=== PATIENT | female | born 1945 | race Caucasian/White ===

== ENCOUNTER 2017-11-13 19:52 | Inpatient (IN) | payer MEDICARE ==
[~2017-11-13] VITALS: Ht 160 cm; Wt 65.8 kg
[~2017-11-13 19:52] MED LIST: ACET325T53 PO; ALPR0.5T8 PO; BENZ1LOZ58 MM; BLOO-360 IN; CALC500T13 PO; DICL50TA7 PO; DOCU100C36 PO; GLIM4TAB PO; HYDR-552 PO; LACT1CAP61 PO; METF10004 PO; PANT40TA2 PO
[2017-11-13 20:00] VITALS: BP 154/84
--- NOTE | 2017-11-13 20:00 | NUR ---
Patient arrived unit via gurney by ambulance from [facility] at 1900. AAO x3. Nepali speaking. No sign of acute distress or SOB was noted. VS was checked, BP: 154/84, HR:108, RR:20, T: 97.6, O2 SAT: 95% Room air. Dr. Motley was called for Medication reconciliations. Patient was assessed, Skin: redness on left heel, redness on right and left groin area, mild redness on perianal area, bruise at upper part of the right thigh, skin abrasion on right lower abdomen (with Mepilex on it). Pictures were taken and placed on the chart. Safety measures maintained, Bed alarm and brake on, side rails up x2, call light and personal belongings within reach, continue to monitor.
[2017-11-13] MEDS ORDERED: ATOR10TA PO (20:07)
[2017-11-13] MEDS ORDERED: METO25TA6 PO (20:07)
[2017-11-13] MEDS ORDERED: GLIM4TAB3 PO (20:07)
[2017-11-13] MEDS ORDERED: ASPI81TA31 PO (20:07)
[2017-11-13] MEDS ORDERED: LOSA100T15 PO (20:07)
[2017-11-13] MEDS ORDERED: LORA0.5T PO (20:07)
[2017-11-13] MEDS ORDERED: ACID1TAB12 PO (20:07)
[2017-11-13] MEDS ORDERED: LEVO500T90 PO (20:07)
[2017-11-13] MEDS ORDERED: METF10004 PO (20:07)
[2017-11-13] MEDS: BLOOD SUGAR DIAGNOSTIC 1 EACH STRIP VI SCH (21:00)
[2017-11-13] MEDS ORDERED: DOCUSATE SODIUM 100 MG CAPSULE PO PRN (21:00)
[2017-11-13] MEDS ORDERED: ACETAMINOPHEN 325 MG TABLET PO PRN (21:00)
[2017-11-13] MEDS ORDERED: CALCIUM CARBONATE 500 MG TAB.CHEW PO PRN (21:00)
[2017-11-13] MEDS ORDERED: HYDROCODONE/APAP 5-325MG TABLET PO PRN ×2 (21:00→23:45)
[2017-11-13] MEDS ORDERED: DEXTROSE 50% 50 ML DISP.SYRIN IV PRN (21:00)
[2017-11-13] MEDS: LORAZEPAM 0.5 MG TABLET PO SCH (22:22)
[2017-11-13] MEDS: ATORVASTATIN 10 MG TABLET PO SCH (22:22)
[2017-11-13] MEDS ORDERED: INSULIN REGULAR, HUMAN 300 UNIT/3 ML VIAL ONE (23:03)
[2017-11-13] MEDS: INSULIN REGULAR, HUMAN 300 UNITS/3 ML VIAL SQ PRN (23:13)
[2017-11-13] MEDS ORDERED: MAGNESIUM HYDROXIDE 30 ML LIQUID UDC PO PRN (23:45)
[2017-11-13] MEDS ORDERED: ZOLPIDEM 5 MG TABLET PO PRN (23:45)
[2017-11-13] MEDS ORDERED: Z GUARD REMEDY PASTE 57 GM TUBE TOP PRN (23:45)
[2017-11-13] MEDS ORDERED: ONDANSETRON 4 MG/2 ML VIAL IV PRN (23:45)
[2017-11-14] MEDS ORDERED: PANTOPRAZOLE SODIUM 40 MG TABLET.DR PO SCH ×2 (07:00→07:30)
[2017-11-14 07:10] LABS: BASOPHILS % (AUTO) 0.3 % (0.0-2.0); EOSINOPHILS # (AUTO) 0.1 K/uL (0.0-0.7); EOSINOPHILS % (AUTO) 1.2 % (0.0-7.0); HEMATOCRIT 32.3 % (31.2-41.9); HEMOGLOBIN 10.9 g/dL (10.9-14.3); LYMPHOCYTES # (AUTO) 2.2 K/uL (20.0-40.0); LYMPHOCYTES % (AUTO) 23.1 % (20.5-51.5); MEAN CORPUSCULAR HEMOGLOBIN 29.7 uug (24.7-32.8); MEAN CORPUSCULAR HGB CONC 34 g/dL (32.3-35.6); MEAN CORPUSCULAR VOLUME 88.3 fL (75.5-95.3); MONOCYTES # (AUTO) 0.7 K/uL (2.0-10.0); MONOCYTES % (AUTO) 7.7 % (0.0-11.0); NEUTROPHILS # (AUTO) 6.3 K/uL (1.8-8.9); NEUTROPHILS % (AUTO) 67.7 % (38.5-71.5); PLATELET COUNT (AUTO) 351 K/uL (179-408); RED BLOOD CELL COUNT(AUTO) 3.65 MIL/uL (3.63-4.92); WHITE BLOOD COUNT (AUTO) 9.4 K/uL (3.8-11.8)
[2017-11-14] MEDS: BLOOD SUGAR DIAGNOSTIC 1 EACH STRIP VI SCH ×4 (07:12→20:48)
[2017-11-14 07:39] LABS: CARBON DIOXIDE 27 mmol/L (21-32); CHLORIDE 101 mmol/L (98-107); CHOLESTEROL 103 mg/dL (<200); CREATININE 1.1 mg/dL (0.6-1.3); GLUCOSE 192 mg/dL (74-106); HDL CHOLESTEROL 33 mg/dL (40-60); MAGNESIUM 1.9 mg/dL (1.8-2.4); PHOSPHOROUS 3.6 mg/dL (2.5-4.9); POTASSIUM 3.4 mmol/L (3.5-5.1); TRIGLYCERIDES 124 MG/DL (30-150); UREA NITROGEN, BLOOD 24 mg/dL (7-18)
--- NOTE | 2017-11-14 07:49 | NUR ---
patient was stable throughout the shift and has a good sleep. safety measure maintained, medication given as ordered. needs attended and anticipated promptly. endorsed to the day shift nurse.
[2017-11-14] MEDS ORDERED: ZOLPIDEM 5 MG TABLET PO PRN (08:00)
[2017-11-14] MEDS: PANTOPRAZOLE SODIUM 40 MG TABLET.DR PO SCH (08:34)
[2017-11-14] MEDS: METFORMIN HCL 500 MG TABLET PO SCH ×2 (08:34→17:13)
[2017-11-14] MEDS: ASPIRIN 81 MG TAB.CHEW PO SCH (08:34)
[2017-11-14] MEDS: GLIMEPIRIDE 4 MG TABLET PO SCH ×2 (08:34→17:13)
[2017-11-14] MEDS: METOPROLOL TARTRATE 25 MG TABLET PO SCH ×2 (08:34→20:35)
[2017-11-14] MEDS: ACIDOPHILUS/BULGARICUS CHEW TAB PO SCH (08:34)
[2017-11-14] MEDS: INSULIN REGULAR, HUMAN 300 UNIT/3 ML VIAL SQ PRN ×2 (08:36→12:10)
[2017-11-14 08:54] VITALS: BP 139/76
[2017-11-14] MEDS ORDERED: LEVOFLOXACIN 500 MG TABLET PO SCH (09:00)
[2017-11-14] MEDS ORDERED: Medication Not On Formulary EA (Metformin Hcl 1,000 MG) PO SCH (09:00)
[2017-11-14] MEDS ORDERED: Medication Not On Formulary EA (Lactobacillus Acidophilus (Acidophilus) 1 EACH) PO SCH (09:00)
[2017-11-14] MEDS ORDERED: Medication Not On Formulary EA (Acidophilus/Bulgaricus (Floranex Tablet) 1 EACH) PO SCH (09:00)
[2017-11-14] MEDS ORDERED: POTASSIUM CHLORIDE 20 MEQ TAB.PRT.SR PO ONE (14:00)
[2017-11-14 17:30] VITALS: BP 136/72
--- NOTE | 2017-11-14 18:35 | NUR ---
Nurse Notes: patient remained stable throughout the shift with no acute changes noted. Kept patient clean, dry and comfortable. assessed for pain, no display of pain or discomforts noted. no SOB or distress. Performed blood sugar checks as scheduled. administered insulin as ordered per sliding scale coverage. Monitored vital signs. safety precautions observed. Hourly rounding done, call light and telephone within reach at all times, bilateral half side rails up and bed brake son for safety. Will endorse accordingly to incoming shift for continuity of acre.
[2017-11-14 20:00] VITALS: BP 173/81
--- NOTE | 2017-11-14 20:05 | NUR ---
Patient received in bed, AAO x2, able to make needs known, [place] speaking. No sign of distress or SOB was noted. On room air with O2 sat 96%. Her family were in the room. Safety measures maintained. Bed alarm and brake on, side rails up x2. Call light and personal belongings within reach. continue to monitor.
[2017-11-14] MEDS: LORAZEPAM 0.5 MG TABLET PO SCH (20:34)
[2017-11-14] MEDS: DOCUSATE SODIUM 100 MG CAPSULE PO SCH (20:34)
[2017-11-14] MEDS: ATORVASTATIN 10 MG TABLET PO SCH (20:34)
[2017-11-14] MEDS: INSULIN REGULAR, HUMAN 300 UNITS/3 ML VIAL SQ PRN (20:48)
[2017-11-15] MEDS: PANTOPRAZOLE SODIUM 40 MG TABLET.DR PO SCH (06:13)
[2017-11-15] MEDS: BLOOD SUGAR DIAGNOSTIC 1 EACH STRIP VI SCH ×4 (06:34→21:31)
[2017-11-15 06:51] VITALS: BP 116/63
--- NOTE | 2017-11-15 06:58 | NUR ---
End of the shift note Patient remained stable throughout the shift. No acute changes noted. Kept patient clean, dry and comfortable. Assessed for pain, no display of pain or discomforts noted. No sign of acute distress or SOB was noted. Performed blood sugar checks as scheduled. BS was 200 at 2100.Administered insulin 3 units as ordered per sliding scale coverage. Monitored vital signs. Safety precautions observed. Hourly rounding done, call light and telephone within reach at all times, bilateral half side rails up and bed brake son for safety. Will endorse accordingly to incoming shift for continuity of acre.
[2017-11-15] MEDS: ASPIRIN 81 MG TAB.CHEW PO SCH (08:51)
[2017-11-15] MEDS: METFORMIN HCL 500 MG TABLET PO SCH ×2 (08:51→16:52)
[2017-11-15] MEDS: ACIDOPHILUS/BULGARICUS CHEW TAB PO SCH (08:51)
[2017-11-15] MEDS: GLIMEPIRIDE 4 MG TABLET PO SCH ×2 (08:51→16:52)
[2017-11-15] MEDS: LEVOFLOXACIN 250 MG TABLET PO SCH (08:51)
[2017-11-15] MEDS: METOPROLOL TARTRATE 25 MG TABLET PO SCH ×2 (08:54→21:16)
--- NOTE | 2017-11-15 15:41 | NUR ---
INTERDISCIPLINARY TEAM CONFERENCE
--- NOTE | 2017-11-15 16:37 | NUR ---
REFUSED SLIDING SCALE COVERAGE FOR LUNCH AND DINNER
--- NOTE | 2017-11-15 19:10 | NUR ---
Pt awake in bed , semi fowlers position . Pt in no distress and has no c/o pain . pt requesting sleep medication . Stated to pt that it was early and pt agreed to wait until 2100 . Bed in low position , wheels locked , side rails up x 2 , bed alarm is on , and call light is near pt on bed .
[2017-11-15 20:00] VITALS: BP 143/89
[2017-11-15] MEDS: LORAZEPAM 0.5 MG TABLET PO SCH (21:14)
[2017-11-15] MEDS: DOCUSATE SODIUM 100 MG CAPSULE PO SCH (21:15)
[2017-11-15] MEDS: ATORVASTATIN 10 MG TABLET PO SCH (21:15)
[2017-11-15] MEDS: INSULIN REGULAR, HUMAN 300 UNITS/3 ML VIAL SQ PRN (21:37)
[2017-11-16] MEDS: PANTOPRAZOLE SODIUM 40 MG TABLET.DR PO SCH (06:35)
[2017-11-16] MEDS: BLOOD SUGAR DIAGNOSTIC 1 EACH STRIP VI SCH ×4 (06:41→20:53)
[2017-11-16 06:53] VITALS: BP 149/66
--- NOTE | 2017-11-16 07:08 | NUR ---
End of Shift . Pt slept throughout the shift . No signs of distress and has no c/o pain . VSS in am .
[2017-11-16] MEDS: GLIMEPIRIDE 4 MG TABLET PO SCH ×2 (08:33→16:33)
[2017-11-16] MEDS: LEVOFLOXACIN 250 MG TABLET PO SCH (08:34)
[2017-11-16] MEDS: METFORMIN HCL 500 MG TABLET PO SCH ×2 (08:34→16:33)
[2017-11-16] MEDS: ACIDOPHILUS/BULGARICUS CHEW TAB PO SCH (08:36)
[2017-11-16] MEDS: METOPROLOL TARTRATE 25 MG TABLET PO SCH (08:36)
[2017-11-16] MEDS: ASPIRIN 81 MG TAB.CHEW PO SCH (08:36)
--- NOTE | 2017-11-16 10:50 | NUR ---
bilat heel pics taken heels CDI no redness or breakdown noted
[2017-11-16] MEDS: LOSARTAN POTASSIUM 50 MG TABLET PO SCH (13:25)
--- NOTE | 2017-11-16 15:06 | NUR ---
INTERDISCIPLINARY TEAM CONFERENCE
[2017-11-16] MEDS: METOPROLOL TARTRATE 50 MG TABLET PO SCH (20:49)
[2017-11-16] MEDS: LORAZEPAM 0.5 MG TABLET PO SCH (20:50)
[2017-11-16] MEDS: ATORVASTATIN 10 MG TABLET PO SCH (20:50)
[2017-11-16] MEDS: DOCUSATE SODIUM 100 MG CAPSULE PO SCH (20:50)
[2017-11-16 21:53] VITALS: BP 159/73
--- NOTE | 2017-11-17 00:14 | NUR ---
Received pt at the beginning of shift in bed and feeling anxious. Italian speaking. Family came and at bedside, pt felt better after seeing family. No acute distress noted. No c/o pain or discomfort. Safety measures maintained. Will continue to monitor.
[2017-11-17 05:56] VITALS: BP 139/64
[2017-11-17] MEDS: PANTOPRAZOLE SODIUM 40 MG TABLET.DR PO SCH (06:06)
[2017-11-17] MEDS: METFORMIN HCL 500 MG TABLET PO SCH ×2 (08:00→16:51)
--- NOTE | 2017-11-17 08:14 | NUR ---
patient had a low blood sugar at 0730. BS: 43. Maverick juice plus sugar give and checked again it was 39. decision support analyst doctor was called with no response. endorsed to the on coming nurse. They administered 50% Dextrose as protocol. continue to monitor.
[2017-11-17] MEDS: BLOOD SUGAR DIAGNOSTIC 1 EACH STRIP VI SCH ×4 (08:20→20:32)
[2017-11-17] MEDS: ASPIRIN 81 MG TAB.CHEW PO SCH (08:52)
[2017-11-17] MEDS: GLIMEPIRIDE 4 MG TABLET PO SCH ×2 (08:52→16:51)
[2017-11-17] MEDS: ACIDOPHILUS/BULGARICUS CHEW TAB PO SCH (08:52)
[2017-11-17] MEDS: LOSARTAN POTASSIUM 50 MG TABLET PO SCH (08:56)
[2017-11-17] MEDS: METOPROLOL TARTRATE 50 MG TABLET PO SCH ×2 (08:57→20:34)
--- NOTE | 2017-11-17 10:03 | NUR ---
Received patient lethargic but awake and oriented. BS of 43 endorse by night nurse. Dextrose 50%given via IV push at left forearm. no infiltration noted. will continue monitor
--- NOTE | 2017-11-17 10:37 | NUR ---
WOUND CARE CONSULT PATIENT SEE AND SKIN INTEGRITY ASSESSMENT DONE.. PATIENT PRESENTS WITH LEFT INNER BUTTOCK DTI THAT IS NOTED TO BE INTACT AT THIS TIME MEASURES 2CM X 1CM X UTD. THERE IS ALSO A SMALLER DTI AT THE BASE OF THE GLUTEAL CLEFT THAT MEASURES 0.5CM X 0.5CM X UTS. BOTH ARE INTACT, PURPLE IN COLOR, NO DRNG AND NO S/S OF INFECTION AND NOTED TO BE POA. RECOMMEND CLEANSE WITH NS PAT DRY AND APPLY MEPILEX DAILY AND PRN SOILING. PATIENT PRESENTS WITH LEFT THIGH DISCOLORATION AND DRY PATCH OF SKIN, NO S/S OF INFECTION NOTED AND POA. BILATERAL HEEL ARE NOTED TO BE INTACT WITH NO REDNESS NOTED. GROIN FOLD REDNESS/EXCORIATIONS ARE NOTED TO BE IMPROVED WITH USE OF Z GUARD. CONTINUE USE OF Z GUARD CURRENTLY ORDERED. RIGHT LOWER ABDOMEN IS NOTED TO HAVE RED AREA OF DRY SKIN POA. KEEP CLEAN AND DRY AND OPEN TO AIR. PATIENT WITH DEMARCUS AT 15, CONTINUE ALL PRESSURE ULCER PREVENTION MEASURES PER CURRENT PLAN OF CARE. TREATMENT PLANS DISCUSSED WITH NURSING STAFF AT THE BEDSIDE. WILL SEE PRN.
[2017-11-17 11:36] VITALS: BP 154/77
[2017-11-17] MEDS: INSULIN REGULAR, HUMAN 300 UNIT/3 ML VIAL SQ PRN ×2 (12:04→20:45)
--- NOTE | 2017-11-17 13:16 | NUR ---
INTERDISCIPLINARY TEAM CONFERENCE
[2017-11-17 16:06] VITALS: BP 134/57
--- NOTE | 2017-11-17 18:17 | NUR ---
Patient not in distress. 95% pulse OXY in room air. Continue on pain management with good effect. will continue monitor Addendum: 11/17/17 at 1820 by DAYNA PERDOMO RN RN [facility] BS-[id number]. no signs of hypo/hyperglycemia.
--- NOTE | 2017-11-17 19:30 | NUR ---
PT AWAKE AND LAYING IN LOW FOWLERS POSITION IN BED . PT IN NO DISTRESS AND HAS NO C/O PAIN . BED IS IN LOW POSITION , WHEELS LOCKED , SIDE RAILS UP X 2 , BED ALARM ON , AND CALL LIGHT IS NEAR PT ON BED . VSS AND PT IS A & O X 2 .
[2017-11-17 20:21] VITALS: BP 156/82
[2017-11-17] MEDS: LORAZEPAM 0.5 MG TABLET PO SCH (20:31)
[2017-11-17] MEDS: ATORVASTATIN 10 MG TABLET PO SCH (20:31)
[2017-11-17] MEDS: DOCUSATE SODIUM 100 MG CAPSULE PO SCH (20:31)
[2017-11-18] MEDS: ACETAMINOPHEN 325 MG TABLET PO PRN (00:20)
[2017-11-18] MEDS: ALPRAZOLAM 0.5 MG TABLET PO PRN ×2 (02:26→14:42)
--- NOTE | 2017-11-18 02:35 | NUR ---
Pt was very anxious and agitated , not redirectable , trying to get out of bed . Pt offered Xanax 0.5 mg and given to pt . Will continue to monitor pt for anxiety and agitation . Safety maintained , call light in reach .
[2017-11-18 05:00] VITALS: BP 151/68
[2017-11-18] MEDS: PANTOPRAZOLE SODIUM 40 MG TABLET.DR PO SCH (06:30)
[2017-11-18] MEDS: BLOOD SUGAR DIAGNOSTIC 1 EACH STRIP VI SCH ×4 (06:38→20:35)
--- NOTE | 2017-11-18 06:57 | NUR ---
End of Shift. Pt slept at 0330 and and is resting comfortably in bed low fowlers position. Pt in no sign of distress and no c/o pain . VSS , pt has a blood sugar of 142 at 0630 .
[2017-11-18 08:20] VITALS: BP 132/63
[2017-11-18] MEDS: GLIMEPIRIDE 4 MG TABLET PO SCH ×2 (08:29→17:08)
[2017-11-18] MEDS: ACIDOPHILUS/BULGARICUS CHEW TAB PO SCH (08:29)
[2017-11-18] MEDS: INSULIN REGULAR, HUMAN 300 UNIT/3 ML VIAL SQ PRN ×3 (08:29→16:27)
[2017-11-18] MEDS: LOSARTAN POTASSIUM 50 MG TABLET PO SCH (08:30)
[2017-11-18] MEDS: METOPROLOL TARTRATE 50 MG TABLET PO SCH ×2 (08:30→20:38)
[2017-11-18] MEDS: ASPIRIN 81 MG TAB.CHEW PO SCH (08:30)
[2017-11-18] MEDS: METFORMIN HCL 500 MG TABLET PO SCH ×2 (08:30→17:08)
[2017-11-18] MEDS: MULTIVITAMINS,THERAPEUTIC TABLET PO SCH (08:31)
[2017-11-18 15:50] VITALS: BP 123/67
--- NOTE | 2017-11-18 20:00 | NUR ---
Pt is awake and laying in low fowlers position in bed . Pt has no signs of distress and has no c/o pain . Pt asking for sleep medication . At 2030 , pt given medications . Bed is in low position , wheels locked , side rails up x 2 , bed alarm on , and call light is near pt on bed . Pt is A & O x 2 , calm and cooperative .
[2017-11-18] MEDS: LORAZEPAM 0.5 MG TABLET PO SCH (20:36)
[2017-11-18] MEDS: DOCUSATE SODIUM 100 MG CAPSULE PO SCH (20:37)
[2017-11-18] MEDS: ATORVASTATIN 10 MG TABLET PO SCH (20:37)
[2017-11-18 20:49] VITALS: BP 153/82
[2017-11-19 05:55] VITALS: BP 134/74
[2017-11-19] MEDS: PANTOPRAZOLE SODIUM 40 MG TABLET.DR PO SCH (06:15)
[2017-11-19] MEDS: BLOOD SUGAR DIAGNOSTIC 1 EACH STRIP VI SCH ×4 (06:31→20:26)
[2017-11-19 07:58] LABS: BASOPHILS # (AUTO) 0.1 K/uL (0.0-8.0); BASOPHILS % (AUTO) 0.9 % (0.0-2.0); EOSINOPHILS # (AUTO) 0.1 K/uL (0.0-0.7); EOSINOPHILS % (AUTO) 0.8 % (0.0-7.0); HEMATOCRIT 34.9 % (31.2-41.9); HEMOGLOBIN 11.9 g/dL (10.9-14.3); LYMPHOCYTES # (AUTO) 1.7 K/uL (20.0-40.0); LYMPHOCYTES % (AUTO) 13.9 % (20.5-51.5); MEAN CORPUSCULAR HEMOGLOBIN 30.1 uug (24.7-32.8); MEAN CORPUSCULAR HGB CONC 34 g/dL (32.3-35.6); MEAN CORPUSCULAR VOLUME 88.4 fL (75.5-95.3); MONOCYTES # (AUTO) 0.7 K/uL (2.0-10.0); MONOCYTES % (AUTO) 5.3 % (0.0-11.0); NEUTROPHILS # (AUTO) 9.7 K/uL (1.8-8.9); NEUTROPHILS % (AUTO) 79.1 % (38.5-71.5); PLATELET COUNT (AUTO) 452 K/uL (179-408); RED BLOOD CELL COUNT(AUTO) 3.94 MIL/uL (3.63-4.92); WHITE BLOOD COUNT (AUTO) 12.3 K/uL (3.8-11.8)
[2017-11-19] MEDS: METFORMIN HCL 500 MG TABLET PO SCH ×2 (08:00→17:13)
[2017-11-19 08:03] LABS: THYROID STIMULATING HORMONE 0.523 mIU/mL (0.358-3.740)
--- NOTE | 2017-11-19 08:05 | NUR ---
Patient is awake and alert, not in distress, not in pain. Patient has no signs and no symptom of hypo or hyperglycemia at this time. Will continue to monitor.
[2017-11-19 08:12] VITALS: BP 136/72
[2017-11-19 08:19] LABS: ALANINE AMINOTRANSFERASE 19 U/L (14-59); ALKALINE PHOSPHATASE 124 U/L (50-136); ASPARTATE AMINOTRANSFERASE 20 U/L (15-37); BILIRUBIN,TOTAL 0.4 mg/dL (0.2-1.0); CARBON DIOXIDE 26 mmol/L (21-32); CHLORIDE 94 mmol/L (98-107); CREATININE 0.9 mg/dL (0.6-1.3); GLUCOSE 90 mg/dL (74-106); MAGNESIUM 1.8 mg/dL (1.8-2.4); PHOSPHOROUS 4.6 mg/dL (2.5-4.9); POTASSIUM 4.1 mmol/L (3.5-5.1); TOTAL PROTEIN, SERUM 8.1 g/dL (6.4-8.2); UREA NITROGEN, BLOOD 24 mg/dL (7-18)
[2017-11-19] MEDS: ACIDOPHILUS/BULGARICUS CHEW TAB PO SCH (09:25)
[2017-11-19] MEDS: ACETAMINOPHEN 325 MG TABLET PO PRN ×2 (09:25→18:57)
[2017-11-19] MEDS: METOPROLOL TARTRATE 50 MG TABLET PO SCH ×2 (09:26→20:28)
[2017-11-19] MEDS: LOSARTAN POTASSIUM 50 MG TABLET PO SCH (09:26)
[2017-11-19] MEDS: MULTIVITAMINS,THERAPEUTIC TABLET PO SCH (09:27)
[2017-11-19] MEDS: ASPIRIN 81 MG TAB.CHEW PO SCH (09:27)
[2017-11-19] MEDS: GLIMEPIRIDE 4 MG TABLET PO SCH ×2 (09:27→17:13)
[2017-11-19] MEDS: INSULIN REGULAR, HUMAN 300 UNIT/3 ML VIAL SQ PRN ×2 (12:03→17:10)
--- NOTE | 2017-11-19 17:19 | NUR ---
patient is awake and alert, family at bedside, daughter is helping her eat dinner at this time, no complaints at this time. No signs and no symptom of hypoglycemia noted.
[2017-11-19 19:30] VITALS: BP 111/59
--- NOTE | 2017-11-19 19:40 | NUR ---
Received pt appearing to be asleep but easily arousable to verbal stimuli and light touch. No acute distress noted. Verbally responsive and able to make needs known. Denies pain or discomfort at this time. All safety measures and fall precautions maintained. Call light and all personal belongings within reach. Will continue to monitor.
[2017-11-19] MEDS: LORAZEPAM 0.5 MG TABLET PO SCH (20:26)
[2017-11-19] MEDS: ATORVASTATIN 10 MG TABLET PO SCH (20:26)
[2017-11-19] MEDS: DOCUSATE SODIUM 100 MG CAPSULE PO SCH (20:26)
[2017-11-19] MEDS: INSULIN REGULAR, HUMAN 300 UNITS/3 ML VIAL SQ PRN (20:36)
[2017-11-20] MEDS: PANTOPRAZOLE SODIUM 40 MG TABLET.DR PO SCH (06:43)
[2017-11-20] MEDS: BLOOD SUGAR DIAGNOSTIC 1 EACH STRIP VI SCH ×2 (06:49→11:30)
[2017-11-20 06:58] LABS: BASOPHILS # (AUTO) 0.1 K/uL (0.0-8.0); BASOPHILS % (AUTO) 0.5 % (0.0-2.0); EOSINOPHILS # (AUTO) 0.1 K/uL (0.0-0.7); EOSINOPHILS % (AUTO) 1.1 % (0.0-7.0); HEMATOCRIT 32.6 % (31.2-41.9); HEMOGLOBIN 11.2 g/dL (10.9-14.3); LYMPHOCYTES # (AUTO) 2.2 K/uL (20.0-40.0); LYMPHOCYTES % (AUTO) 18.8 % (20.5-51.5); MEAN CORPUSCULAR HEMOGLOBIN 30.3 uug (24.7-32.8); MEAN CORPUSCULAR HGB CONC 35 g/dL (32.3-35.6); MEAN CORPUSCULAR VOLUME 87.9 fL (75.5-95.3); MONOCYTES # (AUTO) 0.8 K/uL (2.0-10.0); MONOCYTES % (AUTO) 6.5 % (0.0-11.0); NEUTROPHILS # (AUTO) 8.7 K/uL (1.8-8.9); NEUTROPHILS % (AUTO) 73.1 % (38.5-71.5); PLATELET COUNT (AUTO) 454 K/uL (179-408); WHITE BLOOD COUNT (AUTO) 11.9 K/uL (3.8-11.8)
[2017-11-20 07:22] LABS: ALANINE AMINOTRANSFERASE 17 U/L (14-59); ALKALINE PHOSPHATASE 107 U/L (50-136); ASPARTATE AMINOTRANSFERASE 18 U/L (15-37); BILIRUBIN,TOTAL 0.4 mg/dL (0.2-1.0); CARBON DIOXIDE 29 mmol/L (21-32); CHLORIDE 94 mmol/L (98-107); CREATININE 0.8 mg/dL (0.6-1.3); GLUCOSE 89 mg/dL (74-106); MAGNESIUM 2.2 mg/dL (1.8-2.4); POTASSIUM 4.4 mmol/L (3.5-5.1); TOTAL PROTEIN, SERUM 7.5 g/dL (6.4-8.2); UREA NITROGEN, BLOOD 27 mg/dL (7-18)
[2017-11-20 07:28] VITALS: BP 115/62
--- NOTE | 2017-11-20 08:13 | NUR ---
Patient noted resting in bed with eyes closed, no facial cues of pain noted, no signs of distress noted, call light in reach, bed locked and inlowest position, all needs met at this time
[2017-11-20] MEDS: ASPIRIN 81 MG TAB.CHEW PO SCH (08:34)
[2017-11-20] MEDS: MULTIVITAMINS,THERAPEUTIC TABLET PO SCH (08:34)
[2017-11-20] MEDS: METFORMIN HCL 500 MG TABLET PO SCH (08:34)
[2017-11-20] MEDS: ACIDOPHILUS/BULGARICUS CHEW TAB PO SCH (08:34)
[2017-11-20] MEDS: GLIMEPIRIDE 4 MG TABLET PO SCH (08:35)
[2017-11-20] MEDS: METOPROLOL TARTRATE 50 MG TABLET PO SCH (08:36)
[2017-11-20] MEDS: LOSARTAN POTASSIUM 50 MG TABLET PO SCH (08:36)
[2017-11-20 08:55] VITALS: BP 122/48
[2017-11-20] MEDS ORDERED: CYANOCOBALAMIN 1000 MCG/ML VIAL IM SCH (09:00)
[2017-11-20] MEDS: ACETAMINOPHEN 325 MG TABLET PO PRN (11:28)
[2017-11-20] MEDS: INSULIN REGULAR, HUMAN 300 UNIT/3 ML VIAL SQ PRN (12:39)
[2017-11-20] MEDS ORDERED: NYSTATIN CREAM 30 GM TUBE TOP SCH (15:00)
[2017-11-20 16:34] VITALS: BP 139/62
--- NOTE | 2017-11-20 17:51 | NUR ---
Patient left facility at 1630 via [facility] service, 139/62, 98% on room air, 88 pulse, 18 respirations, 97.6 oral temperature, MD crabtree order for nystatin cream prior to discharge for groin and buttocks area and to continue for 7 days after discharge, exit care provided, pictures of redness to groin/abdomen/buttocks taken and placed in chart, belongings accounted for and sent home with patient, wheelchair and bedside commode provided, patient left facility in stable condition
== END 2017-11-20 16:30 | disposition home health service (06) | DRG 71 ==
PROVIDERS: ADMIT Physical Medicine & Rehabilitation Pain Medicine; ATTEND Physical Medicine & Rehabilitation Pain Medicine
DX: G93.41 Metabolic encephalopathy (principal); I69.354 Hemiplegia and hemiparesis following cerebral infarction affecting left non-dominant side; N39.0 Urinary tract infection, site not specified; D68.59 Other primary thrombophilia; F03.90 Unspecified dementia, unspecified severity, without behavioral disturbance, psychotic disturbance, mood disturbance, and anxiety; I10 Essential (primary) hypertension; R53.1 Weakness; E11.65 Type 2 diabetes mellitus with hyperglycemia; E53.8 Deficiency of other specified B group vitamins; F01.50 Vascular dementia, unspecified severity, without behavioral disturbance, psychotic disturbance, mood disturbance, and anxiety; G20 Parkinson's disease; Z88.0 Allergy status to penicillin; R26.9 Unspecified abnormalities of gait and mobility; E87.6 Hypokalemia
CPT/HCPCS: 36415; 71045; 82306; 83735; 84100; 84443; 85025; 92523; 92526; 92610; 93005; 97110; 97112; 97116; 97165; 97530; 97535; J1815; J3420; J3490